=== PATIENT | female | born 2000 | race Hispanic/Latino ===

== ENCOUNTER 2025-07-03 20:48 | Day surgery (SDC) | payer OTHER ==
[2025-07-03 22:15] LABS: Fetal Membranes Rupture No Membranes Rupture (No Rupture)
== END 2025-07-03 22:30 | disposition home or self-care (01) ==
LOC: CSHLD/OP 20:48
PROVIDERS: ATTEND Family Medicine
DX: Z03.71 Encounter for suspected problem with amniotic cavity and membrane ruled out (principal)
CPT/HCPCS: 84112; 87480; 87510; 87660